=== PATIENT | male | born 1990 | race Caucasian/White ===

== ENCOUNTER 2020-01-10 16:38 | Emergency (ER) | payer OTHER, BC ==
[2020-01-10] MEDS ORDERED: Diphtheria,Pertussis(Acell),Tetanus Vaccine 0.5 ML Syringe IM ONE (17:37)
[2020-01-10] MEDS ORDERED: Bacitracin Oint 1 GM U/D Packet TOP ONE (17:38)
--- NOTE | 2020-01-10 17:48 | EDM.PDOC ---
ED HPI GENERAL MEDICAL PROBLEM - General Chief Complaint: Laceration Stated Complaint: FELL, SCRATCHED LEFT SIDE Time Seen by Provider: 01/10/20 17:35 Source of Information: Reports: Patient, RN. Denies: Old Records History Limitations: Reports: Other (no old records) - History of Present Illness INITIAL COMMENTS - FREE TEXT/NARRATIVE: 29 yo male fell against a sharp sheet metal corner and lacerated his L axilla a few hrs ago. Here for eval. Is due for tetanus. No squirting blood from wound and no arm numbness or weakness. Onset: Today, Sudden Onset Date: 01/10/20 Onset Time: 13:30 Duration: Hour(s):, Constant Location: Reports: Upper Extremity, Left Quality: Reports: Dull Severity: Mild Improves with: Reports: None Worsens with: Reports: None Context: Reports: Trauma Associated Symptoms: Reports: No Other Symptoms Treatments RICE [employer]ER: Reports: Other (see below) (none) - Related Data Allergies Allergy/AdvReac Type Severity Reaction Status Date / Time No Known Allergies Allergy Verified 01/10/20 17:25 Home Meds: Home Meds NK [No Known Home Meds] 01/10/20 [History] Past Medical History - Past Health History Medical/Surgical History: Denies Medical/Surgical History Social & Family History - Tobacco Use Smoking Status *Q: Never Smoker ED ROS GENERAL - Review of Systems Review Of Systems: See Below Constitutional: Reports: No Symptoms Musculoskeletal: Reports: No Symptoms Skin: Reports: Wound (L axilla) Neurological: Reports: No Symptoms ED EXAM, SKIN/RASH Exam: See Below Exam Limited By: No Limitations General Appearance: Alert, WD/WN, No Apparent Distress Extremities: Other (Wound L axilla) Neurological: Alert, Oriented, CN II-XII Intact, Normal Cognition, No Motor/Sensory Deficits Psychiatric: Normal Affect, Normal Mood Skin: Warm, Dry, Normal Color, No Rash, Wound/Incision (irregular laceration of the L axilla). No: Intact Location, Skin: Upper Extremity, Left Characteristics: Other (irregular, no active bleeding) Associated features: Tenderness. No: Warmth, Swelling, Induration, Lymphangitis ED SKIN PROCEDURES - Laceration/Wound Repair Left Axillary Appearance: Subcutaneous, Irregular Distal NVT: Neuro & Vascular Intact, No Tendon Injury Anesthetic Type: Local Local Anesthesia - Lidocaine (Xylocaine): 1% Plain Local Anesthetic Volume: 5cc Skin Prep: Saline Exploration/Debridement/Repair: Wound Explored, Explored to Base Closed with: Sutures Lac/Wound length In cm: 2.7 Suture Size: 5-0 # of Sutures: 5 Suture Type: Nylon, Interrupted, Simple, Mattress Drain Placement: No Sterile Dressing Applied: Nurse Tetanus Status Addressed: Yes Complications: No Course - Vital Signs Last Recorded V/S: Last Vital Signs Temp 36.0 C L 01/10/20 17:34 Pulse 78 01/10/20 17:34 Resp 14 01/10/20 17:34 BP 132/77 01/10/20 17:34 Pulse Ox 98 01/10/20 17:34 - Orders/Labs/Meds Orders: Active Orders 24 hr Category Date Time Status Vaccines to be Administered [RC] PER UNIT ROUTINE Care 01/10/20 17:38 Active Meds: Medications Discontinued Medications Generic Name Dose Route Start Last Admin Trade Name Freq PRN Reason Stop Dose Admin Bacitracin 1 dose 01/10/20 17:38 Bacitracin Oint 1 Gm TOP 01/10/20 17:39 ONETIME ONE Diphtheria/Tetanus/Acell Pertussis 0.5 ml 01/10/20 17:37 Boostrix IM 01/10/20 17:38 .ONCE ONE Lidocaine HCl 5 ml 01/10/20 17:38 Xylocaine-Mpf 1% INJECT 01/10/20 17:39 ONETIME ONE Departure - Departure Time of Disposition: 18:20 Disposition: Home, Self-Care 01 Condition: Good Clinical Impression: Laceration of left axilla Qualifiers: Encounter type: initial encounter Qualified Code(s): S41.112A - Laceration without foreign body of left upper arm, initial encounter - Discharge Information *PRESCRIPTION DRUG MONITORING PROGRAM REVIEWED*: No *COPY OF PRESCRIPTION DRUG MONITORING REPORT IN PATIENT ARACELI: No Instructions: Laceration Care, Adult, [id number] Referrals: PCP,None [Primary Care Provider] - Additional Instructions: Clean wound two to three times per day with either soap and water or 1/2 water and 1/2 peroxide. Dry. Apply antibiotic ointment and a new dressing. Take acetaminophen and/or ibuprofen for pain relief. Stitches out in 8-9 days. Recheck sooner for signs of infection. Sepsis Event Note (ED) - Evaluation Sepsis Screening Result: No Definite Risk - Focused Exam Vital Signs: Vital Signs Temp Pulse Resp BP Pulse Ox 01/10/20 17:34 36.0 C L 78 14 132/77 98 - My Orders Last 24 Hours: My Active Orders 01/10/20 17:38 Vaccines to be Administered [RC] PER UNIT ROUTINE - Assessment/Plan Last 24 Hours: My Active Orders 01/10/20 17:38 Vaccines to be Administered [RC] PER UNIT ROUTINE
== END 2020-01-10 18:28 | disposition home or self-care (01) ==
LOC: JP.ED 16:38
DX: S41.112A Laceration without foreign body of left upper arm, initial encounter (principal); Z23 Encounter for immunization; W26.8XXA Contact with other sharp object(s), not elsewhere classified, initial encounter
CPT/HCPCS: 12002; 90471; 90715; 99282; J2001